=== PATIENT | male | born 1970 | race Caucasian/White ===

== ENCOUNTER 2019-05-08 09:23 | Day surgery (SDC) | payer OTHER ==
[2019-05-08] MEDS ORDERED: PROPOFOL 10 MG/ML VIAL IV ONE (09:24)
[2019-05-08] MEDS ORDERED: LIDOCAINE 2% MDV (20MG/ML) 20ML VIAL IV ONE (09:24)
--- NOTE | 2019-05-15 07:50 | Operative Note ---
SURGEON: Rafael Hutson MD OPERATION: COLONOSCOPY. INDICATIONS: This is a 48-year-old male with history of colon polyps who presented for surveillance colonoscopy. POSTOPERATIVE DIAGNOSES: 1. An 8 mm flat polyp on the appendiceal orifice, status post snare polypectomy with hemoclip application. 2. Otherwise normal colon. ANESTHESIA: Sedation is per Anesthesia. Pulse oximetry was monitored throughout the procedure to maintain O2 saturation of 90% or greater. Supplemental oxygen was administered via nasal cannula. Cardiac and vital signs were monitored throughout the duration of the procedure, and they were stable. The procedure of colonoscopy and risks and alternatives of the procedure, including the risk of bleeding and perforation, among others, were explained to the patient who voiced understanding and agreed to have the procedure done. Physical examination was performed, and the patient was found stable for sedation. PROCEDURE: The patient was placed in the left lateral position. Sedation was initiated. A digital rectal exam was performed and showed some mild external hemorrhoids with no palpable rectal masses. An Olympus PCF-180AL colonoscope was then inserted into the rectum under direct visualization. It was advanced to the cecum without difficulty. The ileocecal valve and appendiceal orifice were identified and photographed. The colonic mucosa was carefully examined upon introduction of the colonoscope. There was an 8 mm sessile polyp on the appendiceal orifice in the cecum that was noted. This was snared with the aid of snare cautery and 2 hemoclips were applied to prevent bleeding. The colonoscope was then withdrawn while carefully examining the colonic mucosal surfaces. There were no other lesions noted. In the rectum, retroflexion was performed and grade 1 internal hemorrhoids were noted. The colonoscope was then withdrawn and the procedure was terminated. The patient tolerated the procedure well without any immediate complications. The patient remained with stable vital signs and was transferred to the recovery room. RECOMMENDATIONS: 1. The patient should be on a low-residue diet for 2 weeks and thereafter to be on a high-fiber diet. 2. The patient is to avoid any aspirin or aspirin-like medications for 2 weeks. 3. The patient is to have a repeat colonoscopy for surveillance in 3 or 5 years depending on the histology of the polyp. Thank you for allowing me to participate in the care of your patient. YADIEL
== END 2019-05-08 11:42 | disposition home or self-care (01) ==
LOC: HOP 09:23
PROVIDERS: ATTEND Internal Medicine Gastroenterology
DX: Z09 Encounter for follow-up examination after completed treatment for conditions other than malignant neoplasm (principal); D12.0 Benign neoplasm of cecum; I10 Essential (primary) hypertension; Z85.038 Personal history of other malignant neoplasm of large intestine